=== PATIENT | male | born 1995 | race American Indian/Alaskan Native ===

== ENCOUNTER 2018-11-01 08:50 | Emergency (ER) | payer OTHER ==
[2018-11-01 09:26] VITALS: BP 116/68
[2018-11-01] MEDS ORDERED: IBUPROFEN PO ONE (09:46)
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
== END 2018-11-01 10:02 | disposition home or self-care (01) ==
LOC: ED 08:50
DX: M25.512 Pain in left shoulder (principal); J45.909 Unspecified asthma, uncomplicated
CPT/HCPCS: 99282

== ENCOUNTER 2018-11-16 11:14 | Emergency (ER) | payer SELFPAY ==
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
[2018-11-16 11:33] VITALS: BP 118/70
[2018-11-16] MEDS ORDERED: DELTASONE PO ONE (12:21)
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
--- NOTE | 2018-11-16 12:44 | XRay Report ---
LEFT SHOULDER: History: Left shoulder pain. Routine views demonstrate normal bony and soft tissue structures with normal joint alignment of the shoulder. IMPRESSION: Normal study.
== END 2018-11-16 13:27 | disposition home or self-care (01) ==
LOC: ED 11:14
DX: M25.512 Pain in left shoulder (principal); J45.909 Unspecified asthma, uncomplicated; Z91.013 Allergy to seafood
CPT/HCPCS: 73030; 99284; J7512